=== PATIENT | female | born 1960 | race Caucasian/White ===

== ENCOUNTER 2019-03-01 09:54 | Inpatient (IN) | payer OTHER ==
[2019-03-01] VITALS (8 sets, daily range): BP systolic 99–135; BP diastolic 47–71
[~2019-03-01] VITALS: Ht 172.7 cm; Wt 125.8 kg
[2019-03-01 11:17] LABS: CALCIUM 7.4 mg/dL (8.5-10.1); CARBON DIOXIDE 27.4 mmol/L (21-32); CHLORIDE SERUM 108 mmol/L (98-107); CREATININE SERUM 2.7 mg/dL (0.6-1.0); GFR1 19 mL/min; GLUCOSE SERUM 105 mg/dL (74-106); POTASSIUM SERUM 3.8 mmol/L (3.5-5.1); SODIUM SERUM 145 mmol/L (136-145)
[2019-03-01 11:22] LABS: ALKALINE PHOSPHATASE 191 U/L (46-116); ALT/SGPT 22 U/L (14-59); AST/SGOT 39 U/L (15-37); TOTAL PROTEIN, SERUM 6.5 g/dL (6.4-8.2)
[2019-03-01 11:24] LABS: ALBUMIN 2.1 g/dL (3.4-5.0)
[2019-03-01 11:36] LABS: T3 TOTAL 0.68 ng/mL
[2019-03-01 11:42] LABS: FREE T4 0.87 ng/dL (0.76-1.46); FREE THYROXINE INDEX 1.7 ug/dL (1.4-4.5)
[2019-03-01 11:58] LABS: PLATELET COUNT 32 x10^3mcL (130-400); RED CELL DISTRIBUTION WIDTH 16.9 % (11.5-14.5)
[2019-03-01 13:24] LABS: BAND NEUTROPHIL 8 % (0-10); BASOPHIL 0 % (0-2); MONOCYTE 10 % (0-7); SEGMENTED NEUTROPHILS 73 % (37-75); rbc morphology (normal/abnorm) ABNORMAL (NORMAL)
[2019-03-01 14:11] LABS: UA SPECIFIC GRAVITY >=1.030 (1.005-1.035); microscopic required? YES; urine erythrocyte 2+ (NEGATIVE)
[2019-03-01] MEDS ORDERED: D3-50001 TAB PO (14:49)
[2019-03-01] MEDS ORDERED: LACTULOSE10 GM/152 PO (14:49)
[2019-03-01] MEDS ORDERED: MORPHINE SULFAT15 MG PO (14:50)
[2019-03-01] MEDS ORDERED: SYN25 PO (14:50)
[2019-03-01] MEDS ORDERED: COLACE100 MG PO (14:50)
[2019-03-01] MEDS ORDERED: NOR10T PO (14:51)
[2019-03-01] MEDS ORDERED: LASIX40 MG PO (14:51)
[2019-03-01] MEDS ORDERED: PHENAZOPYRIDIN200 M3 PO (14:52)
[2019-03-01] MEDS ORDERED: MYSOLINE50 M1 PO (14:52)
[2019-03-01] MEDS ORDERED: NEURONTIN800 MG PO (14:52)
[2019-03-01] MEDS ORDERED: BASAGLAR K100 UNIT/1 SQ (14:53)
[2019-03-01] MEDS ORDERED: HUMALOG100 U/ML SC (14:53)
[2019-03-01 17:34] LABS: AMPHETAMINE QUAL UR NONE DETECTED (See below)
[2019-03-02] VITALS (17 sets, daily range): BP systolic 81–144; BP diastolic 47–69
[2019-03-02 05:28] LABS: BASOPHIL % 0.4 % (0-2)
[2019-03-02 05:36] LABS: RED CELL DISTRIBUTION WIDTH 16.5 % (11.5-14.5)
[2019-03-02 05:37] LABS: PLATELET COUNT 29 x10^3mcL (130-400)
[2019-03-02 07:07] LABS: CALCIUM 8.2 mg/dL (8.5-10.1); CREATININE SERUM 3.2 mg/dL (0.6-1.0); MAGNESIUM 1.9 mg/dL (1.8-2.4); POTASSIUM SERUM 4.7 mmol/L (3.5-5.1)
[2019-03-03] VITALS (18 sets, daily range): BP systolic 116–166; BP diastolic 48–89
[2019-03-03 05:00] LABS: BASOPHIL % 0.9 % (0-2)
[2019-03-03 05:01] LABS: PLATELET COUNT 25 x10^3mcL (130-400); RED CELL DISTRIBUTION WIDTH 16.4 % (11.5-14.5)
[2019-03-03 05:42] LABS: CALCIUM 8.3 mg/dL (8.5-10.1); CARBON DIOXIDE 24.6 mmol/L (21-32); CREATININE SERUM 3.9 mg/dL (0.6-1.0)
[2019-03-04] VITALS (19 sets, daily range): BP systolic 82–158; BP diastolic 38–493
[2019-03-04 05:43] LABS: CALCIUM 8.7 mg/dL (8.5-10.1); CARBON DIOXIDE 25.6 mmol/L (21-32); POTASSIUM SERUM 4.6 mmol/L (3.5-5.1)
[2019-03-04 05:45] LABS: CREATININE SERUM 4.1 mg/dL (0.6-1.0)
[2019-03-04 06:01] LABS: BASOPHIL % 0.3 % (0-2)
[2019-03-04 06:02] LABS: PLATELET COUNT 31 x10^3mcL (130-400); RED CELL DISTRIBUTION WIDTH 16.9 % (11.5-14.5)
[2019-03-04 18:38] LABS: PLATELET COUNT 59 x10^3mcL (130-400); RED CELL DISTRIBUTION WIDTH 17.2 % (11.5-14.5)
[2019-03-04 22:29] LABS: CREATININE SERUM 3.9 mg/dL (0.6-1.0)
[2019-03-05] VITALS (17 sets, daily range): BP systolic 104–159; BP diastolic 45–72
[2019-03-05 05:54] LABS: BASOPHIL % 0.1 % (0-2)
[2019-03-05 05:55] LABS: RED CELL DISTRIBUTION WIDTH 16.8 % (11.5-14.5)
[2019-03-05 05:59] LABS: PLATELET COUNT 40 x10^3mcL (130-400)
[2019-03-05 06:07] LABS: CALCIUM 8.6 mg/dL (8.5-10.1); CARBON DIOXIDE 28.8 mmol/L (21-32); CREATININE SERUM 3.3 mg/dL (0.6-1.0); POTASSIUM SERUM 3.6 mmol/L (3.5-5.1)
[2019-03-06] VITALS (17 sets, daily range): BP systolic 84–143; BP diastolic 38–67
[2019-03-06 04:38] LABS: BASOPHIL % 0 % (0-2); RED CELL DISTRIBUTION WIDTH 16.9 % (11.5-14.5)
[2019-03-06 04:46] LABS: CALCIUM 8.4 mg/dL (8.5-10.1); CREATININE SERUM 2.8 mg/dL (0.6-1.0); MAGNESIUM 1.8 mg/dL (1.8-2.4); PHOSPHOROUS 3.9 mg/dL (2.5-4.9); POTASSIUM SERUM 3.7 mmol/L (3.5-5.1)
[2019-03-06 04:47] LABS: PLATELET COUNT 32 x10^3mcL (130-400)
[2019-03-07] VITALS (14 sets, daily range): BP systolic 88–126; BP diastolic 39–67; Ht 172.7 cm; Wt 125.8 kg
[2019-03-07 05:29] LABS: CALCIUM 8.3 mg/dL (8.5-10.1); CARBON DIOXIDE 26.8 mmol/L (21-32); MAGNESIUM 1.9 mg/dL (1.8-2.4); PHOSPHOROUS 4.2 mg/dL (2.5-4.9); POTASSIUM SERUM 3.7 mmol/L (3.5-5.1)
[2019-03-07 05:54] LABS: BASOPHIL % 0.4 % (0-2)
[2019-03-07 05:58] LABS: PLATELET COUNT 35 x10^3mcL (130-400); RED CELL DISTRIBUTION WIDTH 15.8 % (11.5-14.5)
[2019-03-08 03:04] VITALS: BP 108/49
[2019-03-08 05:26] LABS: CALCIUM 8.7 mg/dL (8.5-10.1); CARBON DIOXIDE 25.3 mmol/L (21-32); CREATININE SERUM 2.7 mg/dL (0.6-1.0); POTASSIUM SERUM 4.1 mmol/L (3.5-5.1)
[2019-03-08 05:28] LABS: RED CELL DISTRIBUTION WIDTH 16.2 % (11.5-14.5)
[2019-03-08 05:29] LABS: PLATELET COUNT 33 x10^3mcL (130-400)
[2019-03-08 05:38] LABS: BAND NEUTROPHIL 1 % (0-10); MONOCYTE 3 % (0-7); SEGMENTED NEUTROPHILS 89 % (37-75)
[2019-03-08 05:44] LABS: rbc morphology (normal/abnorm) ABNORMAL (NORMAL)
[2019-03-08 05:45] LABS: PLATELET MORPHOLOGY PLATELETS DECREASED
[2019-03-08 07:20] VITALS: BP 103/46
[2019-03-08 11:19] VITALS: BP 117/61
[2019-03-08 18:40] VITALS: BP 102/43
[2019-03-08 20:53] VITALS: BP 126/49
[2019-03-09 05:23] VITALS: BP 115/52
[2019-03-09 06:53] LABS: BASOPHIL % 0.2 % (0-2); CALCIUM 8.6 mg/dL (8.5-10.1); CARBON DIOXIDE 28.4 mmol/L (21-32); CREATININE SERUM 2.2 mg/dL (0.6-1.0); MAGNESIUM 1.9 mg/dL (1.8-2.4); PHOSPHOROUS 3.6 mg/dL (2.5-4.9); POTASSIUM SERUM 3.5 mmol/L (3.5-5.1)
[2019-03-09 07:56] VITALS: BP 133/53
[2019-03-09 10:04] LABS: PLATELET COUNT 47 x10^3mcL (130-400)
[2019-03-09 12:28] VITALS: BP 101/38
[2019-03-09 16:08] VITALS: BP 108/34
[2019-03-09 20:34] VITALS: BP 127/45
[2019-03-10 05:57] VITALS: BP 110/43
[2019-03-10 06:50] LABS: CALCIUM 8.7 mg/dL (8.5-10.1); CARBON DIOXIDE 24.9 mmol/L (21-32); CREATININE SERUM 2.4 mg/dL (0.6-1.0); MAGNESIUM 1.9 mg/dL (1.8-2.4); PHOSPHOROUS 4.4 mg/dL (2.5-4.9); POTASSIUM SERUM 3.6 mmol/L (3.5-5.1)
[2019-03-10 07:28] LABS: BASOPHIL % 0.3 % (0-2); PLATELET COUNT 62 x10^3mcL (130-400); RED CELL DISTRIBUTION WIDTH 17.5 % (11.5-14.5)
[2019-03-10 09:54] VITALS: BP 92/40
[2019-03-10 13:26] VITALS: BP 112/48
[2019-03-10 14:14] VITALS: BP 112/48
[2019-03-10 17:18] VITALS: BP 107/39
[2019-03-10 21:56] VITALS: BP 112/42
[2019-03-11 05:11] VITALS: BP 111/42
[2019-03-11 07:23] LABS: CALCIUM 8.6 mg/dL (8.5-10.1); CARBON DIOXIDE 29.5 mmol/L (21-32); CREATININE SERUM 2.1 mg/dL (0.6-1.0); MAGNESIUM 1.8 mg/dL (1.8-2.4); PHOSPHOROUS 3.6 mg/dL (2.5-4.9); POTASSIUM SERUM 3.8 mmol/L (3.5-5.1)
[2019-03-11 08:21] LABS: BASOPHIL % 0.2 % (0-2)
[2019-03-11 08:24] LABS: PLATELET COUNT 60 x10^3mcL (130-400); RED CELL DISTRIBUTION WIDTH 17.2 % (11.5-14.5)
[2019-03-11 10:02] VITALS: BP 117/44
[2019-03-11 12:41] VITALS: BP 114/43
[2019-03-11 18:34] VITALS: BP 116/39
[2019-03-11 20:43] VITALS: BP 139/29
[2019-03-11 21:06] VITALS: BP 117/48
[2019-03-12 06:06] VITALS: BP 107/36
[2019-03-12 06:46] LABS: BASOPHIL % 0.4 % (0-2)
[2019-03-12] MEDS ORDERED: PROA PO (06:50)
[2019-03-12 06:54] LABS: CALCIUM 8.3 mg/dL (8.5-10.1); CREATININE SERUM 2.6 mg/dL (0.6-1.0); MAGNESIUM 1.8 mg/dL (1.8-2.4); PHOSPHOROUS 3.8 mg/dL (2.5-4.9); POTASSIUM SERUM 3.9 mmol/L (3.5-5.1)
[2019-03-12 08:45] LABS: PLATELET COUNT 73 x10^3mcL (130-400); RED CELL DISTRIBUTION WIDTH 18.1 % (11.5-14.5)
[2019-03-12 09:56] VITALS: BP 111/36
[2019-03-12 12:54] VITALS: BP 115/39
[2019-03-12 17:19] VITALS: BP 111/67
[2019-03-12 21:07] VITALS: BP 107/37
[2019-03-13 06:09] VITALS: BP 107/32
[2019-03-13 06:30] LABS: BASOPHIL % 1.1 % (0-2)
[2019-03-13 06:35] LABS: PLATELET COUNT 68 x10^3mcL (130-400); RED CELL DISTRIBUTION WIDTH 17.8 % (11.5-14.5)
[2019-03-13 06:49] LABS: CALCIUM 8.9 mg/dL (8.5-10.1); CARBON DIOXIDE 28.1 mmol/L (21-32); PHOSPHOROUS 4.7 mg/dL (2.5-4.9); POTASSIUM SERUM 4.6 mmol/L (3.5-5.1)
[2019-03-13 09:00] VITALS: BP 105/45
[2019-03-13 12:52] VITALS: BP 108/53
[2019-03-13 17:34] VITALS: BP 105/41
[2019-03-13 20:57] VITALS: BP 108/45
[2019-03-14 05:33] VITALS: BP 133/37
[2019-03-14 10:00] VITALS: BP 119/50
[2019-03-14 13:29] VITALS: BP 112/41
[2019-03-14 18:00] VITALS: BP 126/33
[2019-03-14 22:28] VITALS: BP 117/48
[2019-03-15 05:23] VITALS: BP 111/43
[2019-03-15 06:14] LABS: CALCIUM 8.9 mg/dL (8.5-10.1); CARBON DIOXIDE 28.8 mmol/L (21-32); CREATININE SERUM 2.8 mg/dL (0.6-1.0); MAGNESIUM 1.9 mg/dL (1.8-2.4); POTASSIUM SERUM 4.7 mmol/L (3.5-5.1)
[2019-03-15 06:50] LABS: BASOPHIL % 0.2 % (0-2)
[2019-03-15 06:51] LABS: PLATELET COUNT 61 x10^3mcL (130-400); RED CELL DISTRIBUTION WIDTH 17.9 % (11.5-14.5)
[2019-03-15 08:27] VITALS: BP 121/49
[2019-03-15 16:12] VITALS: BP 112/45
[2019-03-15 21:09] VITALS: BP 131/46
[2019-03-16 06:14] VITALS: BP 123/40
[2019-03-16 08:02] VITALS: BP 110/37
[2019-03-16 12:50] VITALS: BP 110/37
== END 2019-03-16 15:05 | disposition home health service (06) | DRG 710 ==
LOC: ED 09:54 → DU 12:56 → IC 12:56 → DU 03-08 15:08 → MU 03-15 10:00
PROVIDERS: Emergency Medicine; Family Medicine; Specialist; ADMIT Internal Medicine
PROC: 5A1955Z Respiratory Ventilation, Greater than 96 Consecutive Hours (ICD-10-PCS; principal; 2019-03-01)
PROC: 0BH17EZ Insertion of Endotracheal Airway into Trachea, Via Natural or Artificial Opening (ICD-10-PCS; 2019-03-01)
PROC: 02HV33Z Insertion of Infusion Device into Superior Vena Cava, Percutaneous Approach (ICD-10-PCS; 2019-03-01)
PROC: B548ZZA Ultrasonography of Superior Vena Cava, Guidance (ICD-10-PCS; 2019-03-01)
PROC: 30233R1 Transfusion of Nonautologous Platelets into Peripheral Vein, Percutaneous Approach (ICD-10-PCS; 2019-03-04)
PROC: 02HV33Z Insertion of Infusion Device into Superior Vena Cava, Percutaneous Approach (ICD-10-PCS; 2019-03-04)
PROC: B548ZZA Ultrasonography of Superior Vena Cava, Guidance (ICD-10-PCS; 2019-03-04)
PROC: 5A1D70Z Performance of Urinary Filtration, Intermittent, Less than 6 Hours Per Day (ICD-10-PCS; 2019-03-04)
PROC: 5A1D70Z Performance of Urinary Filtration, Intermittent, Less than 6 Hours Per Day (ICD-10-PCS; 2019-03-05)
PROC: 5A1D70Z Performance of Urinary Filtration, Intermittent, Less than 6 Hours Per Day (ICD-10-PCS; 2019-03-07)
PROC: 5A1D70Z Performance of Urinary Filtration, Intermittent, Less than 6 Hours Per Day (ICD-10-PCS; 2019-03-08)
PROC: 5A1D70Z Performance of Urinary Filtration, Intermittent, Less than 6 Hours Per Day (ICD-10-PCS; 2019-03-10)
PROC: 05733ZZ Dilation of Right Innominate Vein, Percutaneous Approach (ICD-10-PCS; 2019-03-13)
PROC: B5181ZA Fluoroscopy of Superior Vena Cava using Low Osmolar Contrast, Guidance (ICD-10-PCS; 2019-03-13)
PROC: 02HV33Z Insertion of Infusion Device into Superior Vena Cava, Percutaneous Approach (ICD-10-PCS; 2019-03-13)
PROC: B548ZZA Ultrasonography of Superior Vena Cava, Guidance (ICD-10-PCS; 2019-03-13)
PROC: 0JH63XZ Insertion of Tunneled Vascular Access Device into Chest Subcutaneous Tissue and Fascia, Percutaneous Approach (ICD-10-PCS; 2019-03-13)
PROC: 02HV33Z Insertion of Infusion Device into Superior Vena Cava, Percutaneous Approach (ICD-10-PCS; 2019-03-13)
PROC: B5181ZA Fluoroscopy of Superior Vena Cava using Low Osmolar Contrast, Guidance (ICD-10-PCS; 2019-03-13)
PROC: 5A1D70Z Performance of Urinary Filtration, Intermittent, Less than 6 Hours Per Day (ICD-10-PCS; 2019-03-13)
PROC: 5A1D70Z Performance of Urinary Filtration, Intermittent, Less than 6 Hours Per Day (ICD-10-PCS; 2019-03-15)
DX: A41.9 Sepsis, unspecified organism (principal); K72.00 Acute and subacute hepatic failure without coma; N17.0 Acute kidney failure with tubular necrosis; E43 Unspecified severe protein-calorie malnutrition; J96.02 Acute respiratory failure with hypercapnia; J96.01 Acute respiratory failure with hypoxia; G93.41 Metabolic encephalopathy; D61.818 Other pancytopenia; E66.01 Morbid (severe) obesity due to excess calories; L03.116 Cellulitis of left lower limb; E03.9 Hypothyroidism, unspecified; E78.00 Pure hypercholesterolemia, unspecified; G89.29 Other chronic pain; M54.9 Dorsalgia, unspecified; J45.909 Unspecified asthma, uncomplicated; K74.60 Unspecified cirrhosis of liver; E87.6 Hypokalemia; I87.2 Venous insufficiency (chronic) (peripheral); E11.22 Type 2 diabetes mellitus with diabetic chronic kidney disease; I50.30 Unspecified diastolic (congestive) heart failure; D63.8 Anemia in other chronic diseases classified elsewhere; N18.6 End stage renal disease; I13.2 Hypertensive heart and chronic kidney disease with heart failure and with stage 5 chronic kidney disease, or end stage renal disease; I25.10 Atherosclerotic heart disease of native coronary artery without angina pectoris; Z79.4 Long term (current) use of insulin; Z89.422 Acquired absence of other left toe(s); Z68.41 Body mass index [BMI] 40.0-44.9, adult; Z95.1 Presence of aortocoronary bypass graft; Z88.0 Allergy status to penicillin; Z90.710 Acquired absence of both cervix and uterus; Z91.19 Patient's noncompliance with other medical treatment and regimen; Z91.14 Patient's other noncompliance with medication regimen
CPT/HCPCS: 36556; 36600; 82962; 84439; 86580; 92526-GN; 92610; 97110-GP; A4301; A4628; G0480; J1100; J1642; J1644; J1815; J1885; J1940; J1956; J2001; J2060; J2250; J3010; J3370; J3490; J7030; J7042; J7050; J7620; P9035; P9047; Q0092; Q0163